=== PATIENT | female | born 2000 | race Caucasian/White ===

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

== ENCOUNTER → 2018-10-14 | Outpatient (REF) | payer OTHER, MEDICAID ==
[2018-10-14 13:52] LABS: APPEARANCE, URINE CLOUDY (CLEAR); BACTERIA, URINE AUTO 1+ (NEGATIVE); BILIRUBIN, URINE AUTO NEGATIVE (NEGATIVE); BLOOD, URINE BLOOD NEGATIVE (NEGATIVE); COLOR, URINE YELLOW (YELLOW); GLUCOSE, URINE (UA) AUTO NEGATIVE (NEGATIVE); KETONE, URINE AUTO NEGATIVE (NEGATIVE); LEUKOCYTE ESTERASE, URINE AUTO 3+ (NEGATIVE); MUCUS, URINE SMALL (NEGATIVE); NITRITE, URINE AUTO NEGATIVE (NEGATIVE); PROTEIN, URINE AUTO NEGATIVE (NEGATIVE); RBC, URINE AUTO 2 /HPF (0-3); SPECIFIC GRAVITY URINE AUTO 1.021 (1.002-1.035); SQUAMOUS EPITHELIAL CELL UR AU 6 /HPF (0-6); TRANSITIONAL EPITHELIAL AUTO 2 /HPF; UROBILINOGEN, URINE AUTO 0.2 mg/dL (0.0-2.0); WBC, URINE AUTO 36 /HPF (0-3)
[2018-10-14 18:15] LABS: ALBUMIN 4.3 GM/DL (3.2-5.2); ALT/SGPT 22 U/L (12-78); BILIRUBIN,TOTAL 0.7 MG/DL (0.2-1.0); BLOOD UREA NITROGEN 9 MG/DL (7-18); CALCIUM LEVEL 9.4 MG/DL (8.5-10.1); CARBON DIOXIDE LEVEL 25 MEQ/L (21-32); CHLORIDE LEVEL 109 MEQ/L (98-107); CHOLESTEROL LEVEL 181 MG/DL (<200); CHOLESTEROL RISK RATIO 4.763 (<5); CREATININE FOR GFR 0.85 MG/DL (0.55-1.30); FREE T4 1.09 NG/DL (0.78-1.33); GLUCOSE, FASTING 83 MG/DL (70-100); HDL CHOLESTEROL 38 MG/DL (>40); LDL CHOLESTEROL 114 MG/DL (<100); NON-HDL-C 143 MG/DL; POTASSIUM SERUM 3.9 MEQ/L (3.5-5.1); SODIUM LEVEL 140 MEQ/L (136-145); TOTAL PROTEIN 8.1 GM/DL (6.4-8.2); TRIGLYCERIDES LEVEL 145 MG/DL (<150)
[2018-10-14 18:26] LABS: BASO % 0.4 % (0.0-1.0); EOS # 0.1 10^3/uL (0.0-0.50); EOS % 0.6 % (0.0-3.0); HEMATOCRIT 41.6 % (36.0-47.0); HEMOGLOBIN 13.7 g/dl (12.0-15.5); LYMPH # 3.3 10^3/uL (1.5-6.5); LYMPH % 30.7 % (24.0-44.0); MEAN CORPUSCULAR HEMOGLOBIN 28.8 pg (27.0-33.0); MEAN CORPUSCULAR HGB CONC 32.9 g/dl (32.0-36.5); MEAN CORPUSCULAR VOLUME 87.4 fl (80.0-96.0); MONO # 0.6 10^3/uL (0.0-0.8); MONO % 5.5 % (0.0-5.0); NEUTROPHILS # 6.8 10^3/uL (1.8-7.7); NEUTROPHILS % 62.4 % (36.0-66.0); PLATELET COUNT, AUTOMATED 334 10^3/uL (150-450); RED BLOOD COUNT 4.76 10^6/uL (4.00-5.40); WHITE BLOOD COUNT 10.9 10^3/uL (4.0-10.0)
== END ==
LOC: M LAB REF 13:21
PROVIDERS: ATTEND Nurse Practitioner Family
DX: Z13.9 Encounter for screening, unspecified (principal)

== ENCOUNTER → 2019-02-04 | Outpatient (REF) | payer OTHER, MEDICAID ==
[2019-02-04 13:57] LABS: CHOLESTEROL RISK RATIO 4.692 (<5)
[2019-02-04 14:03] LABS: TOTAL 25(OH) VITAMIN D 56.5 NG/ML (30.0-100.0)
[2019-02-04 14:31] LABS: HEMOGLOBIN A1c 5.8 %
== END ==
LOC: M LAB REF 12:17
PROVIDERS: ATTEND Nurse Practitioner Family
DX: E78.5 Hyperlipidemia, unspecified (principal); R73.03 Prediabetes; E55.9 Vitamin D deficiency, unspecified

== ENCOUNTER 2020-02-28 17:14 | Emergency (ER) | payer OTHER, BC ==
[~2020-02-28] VITALS: Ht 165.1 cm; Wt 99.1 kg
[2020-02-28] MEDS ORDERED: DEPO150I12 IM (17:31)
[2020-02-28] MEDS ORDERED: methocarbamoL 500 MG TAB PO ONE (18:30)
[2020-02-28] MEDS ORDERED: ACETAMINOPHEN 500 MG TAB PO ONE (18:30)
[2020-02-28 19:01] LABS: APPEARANCE, URINE HAZY (CLEAR); BACTERIA, URINE AUTO NEGATIVE (NEGATIVE); BILIRUBIN, URINE AUTO NEGATIVE (NEGATIVE); BLOOD, URINE BLOOD NEGATIVE (NEGATIVE); COLOR, URINE YELLOW (YELLOW); GLUCOSE, URINE (UA) AUTO NEGATIVE (NEGATIVE); KETONE, URINE AUTO NEGATIVE (NEGATIVE); LEUKOCYTE ESTERASE, URINE AUTO 2+ (NEGATIVE); MUCUS, URINE SMALL (NEGATIVE); NITRITE, URINE AUTO NEGATIVE (NEGATIVE); PROTEIN, URINE AUTO NEGATIVE (NEGATIVE); RBC, URINE AUTO 3 /HPF (0-3); SQUAMOUS EPITHELIAL CELL UR AU 1 /HPF (0-6); UROBILINOGEN, URINE AUTO 0.2 mg/dL (0.0-2.0); WBC, URINE AUTO 3 /HPF (0-3)
[2020-02-28 19:05] LABS: BASO # 0.1 10^3/uL (0.0-0.2); BASO % 0.3 % (0.0-1.0); EOS # 0.1 10^3/uL (0.0-0.5); EOS % 0.4 % (0.0-3.0); HEMOGLOBIN 12.8 g/dl (12.0-15.5); LYMPH # 4.2 10^3/uL (1.5-5.0); LYMPH % 27.4 % (24.0-44.0); MEAN CORPUSCULAR HEMOGLOBIN 28.5 pg (27.0-33.0); MEAN CORPUSCULAR HGB CONC 32.8 g/dl (32.0-36.5); MEAN CORPUSCULAR VOLUME 86.9 fl (80.0-96.0); MONO % 6.3 % (0.0-5.0); NEUTROPHILS # 9.9 10^3/uL (1.5-8.5); NEUTROPHILS % 65.2 % (36.0-66.0); RED BLOOD COUNT 4.49 10^6/uL (4.00-5.40); WHITE BLOOD COUNT 15.1 10^3/uL (4.0-10.0)
[2020-02-28 19:23] LABS: HCG, SERUM QUALITATIVE NEGATIVE (NEGATIVE)
[2020-02-28 19:25] LABS: ALBUMIN 4.2 GM/DL (3.2-5.2); ALT/SGPT 21 U/L (12-78); BILIRUBIN,DIRECT < 0.1 MG/DL (0.0-0.2); BILIRUBIN,TOTAL 0.6 MG/DL (0.2-1.0); BLOOD UREA NITROGEN 11 MG/DL (7-18); CARBON DIOXIDE LEVEL 24 MEQ/L (21-32); CHLORIDE LEVEL 109 MEQ/L (98-107); CREATININE FOR GFR 0.94 MG/DL (0.55-1.30); GLOMERULAR FILTRATION RATE > 60.0 (>60); GLUCOSE, FASTING 85 MG/DL (70-100); LIPASE 50 U/L (73-393); POTASSIUM SERUM 5.1 MEQ/L (3.5-5.1); SODIUM LEVEL 139 MEQ/L (136-145); TOTAL PROTEIN 7.8 GM/DL (6.4-8.2)
[2020-02-28] MEDS ORDERED: ISOVUE-370 76% 100ML VIAL As Ordered ONE (19:56)
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
[2020-02-28] MEDS ORDERED: IBUP-1022 PO (21:16)
[2020-02-28] MEDS ORDERED: BACI500O21 TOP (21:16)
[2020-02-28] MEDS ORDERED: ROBA750T4 PO (21:16)
[2020-02-28 21:20] VITALS: BP 121/76
--- NOTE | 2020-03-01 09:40 | ED PDOC ---
Post-Departure Follow-Up radha sheehan faxed formal repor tof ct head for fu Jennifer Cobb MD Mar 01, 2020 09:40
== END 2020-02-28 21:30 | disposition home or self-care (01) ==
LOC: M ED 17:14
DX: M54.9 Dorsalgia, unspecified (principal); R07.89 Other chest pain; M54.2 Cervicalgia; S69.92XA Unspecified injury of left wrist, hand and finger(s), initial encounter; V43.52XA Car driver injured in collision with other type car in traffic accident, initial encounter; Y92.9 Unspecified place or not applicable; Y93.9 Activity, unspecified; Y99.9 Unspecified external cause status; Z79.3 Long term (current) use of hormonal contraceptives; Z79.899 Other long term (current) drug therapy; Z88.5 Allergy status to narcotic agent
CPT/HCPCS: 70450; 71260; 72125; 74177; 80048; 80076; 81001; 83690; 84703; 85025; 99284; Q9967

== ENCOUNTER → 2020-03-31 | Outpatient (CLI) | payer BC ==
[~2020-03-31] MED LIST: BACI500O21 TOP; DEPO150I12 IM; IBUP-1022 PO; ROBA750T4 PO
--- NOTE | 2020-03-31 21:14 | REPVR ---
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 COMPARISON: CT Head without contrast 02/28/2020 8:04 PM FINDINGS: Brain: Small focal hypodensity in the inferior jaime adjacent to the cerebellar peduncle only demonstrated on gradient weighted imaging. Cerebral ventricles: Stable appearance of enlargement of the atria and occipital horns of the right lateral ventricle. Bones/joints: Unremarkable. Paranasal sinuses: Normal as visualized. No acute sinusitis. Mastoid air cells: Normal as visualized. No mastoid effusion. Orbits: Unremarkable. Soft tissues: Unremarkable. IMPRESSION: 1. Stable appearance of enlargement of the atria and occipital horns of the right lateral ventricle. 2. Small focal abnormality in the left inferior jaime near the middle peduncle of the cerebellum on gradient weighted images only.Finding of uncertain significance but can be demonstrated in microhemorrhages, vascular malformations (low-flow type) including venous malformations and cerebral cavernous malformations. Brain otherwise unremarkable. Electronically signed by: Anand Valladares On 03/31/2020 21:14:18 PM
== END ==
LOC: M RAD 17:07
PROVIDERS: ATTEND Neurological Surgery
DX: G93.0 Cerebral cysts (principal); G43.709 Chronic migraine without aura, not intractable, without status migrainosus

== ENCOUNTER → 2020-12-29 | Outpatient (CLI) | payer OTHER ==
--- NOTE | 2021-01-01 12:33 | REPVR ---
PROCEDURE INFORMATION: Exam: MR Head Without Contrast Exam date and time: 12/29/2020 4:03 PM Age: 20 years old Clinical indication: Condition or disease; Other: Brain cyst; Prior surgery; Surgery date: 6+ months; Additional info: Cyst of brain TECHNIQUE: Imaging protocol: MR of the head without contrast. COMPARISON: MRI-Brain without Contrast 03/31/2020 6:18 PM FINDINGS: Brain: Examination reveals stable appearance small focal encephalomalacia in the right parieto-occipital cortex axial image 14. Remainder of the brain parenchyma is unremarkable.There is no abnormal diffusion weighted signal intensity to suggest an acute ischemic event. Cerebral ventricles: Stable moderate dilatation of the atrium and occipital horns of the right lateral ventricle, unchanged since the previous study. The left lateral ventricle, 3rd ventricle and the 4th ventricle are normal in size. Bones/joints: Unremarkable. Paranasal sinuses: Mild mucosal thickening is seen in the paranasal sinuses. Mastoid air cells: Normal as visualized. No mastoid effusion. Orbital cavity: Unremarkable. Soft tissues: Unremarkable. IMPRESSION: 1. No acute infarction, masses or hemorrhage is seen. No acute intracranial abnormality is identified. There has been no adverse interval change since the previous study. 2. Examination reveals stable appearance small focal encephalomalacia in the right parieto-occipital cortex axial image 14. 3. Stable moderate dilatation of the atrium and occipital horns of the right lateral ventricle, unchanged since the previous study. Electronically signed by: Abhilash Matson On 01/01/2021 12:33:36 PM
== END ==
LOC: M PLAIMG 15:23
PROVIDERS: ATTEND Neurological Surgery
DX: G93.0 Cerebral cysts (principal)

== ENCOUNTER → 2023-07-04 | Outpatient (REF) | payer OTHER ==
[2023-07-04 13:55] LABS: IMMUNOGLOBULIN A 93.9 MG/DL (40-350)
[2023-07-04 13:56] LABS: PERCENT SATURATION 12.9 % (13.2-45.0)
[2023-07-07 15:07] LABS: ENDOMYSIAL ABY IgA Negative (Negative); TISSUE TRANSGLUTAMINASE IgA <2 U/mL (0-3)
== END ==
LOC: M LAB REF 12:22
PROVIDERS: ATTEND Internal Medicine
DX: R19.7 Diarrhea, unspecified (principal); R53.83 Other fatigue; N39.0 Urinary tract infection, site not specified